=== PATIENT | male | born 1975 | race Caucasian/White ===

== ENCOUNTER 2024-08-03 14:21 | Outpatient (AMB) | payer OTHER, SELFPAY ==
--- NOTE | 2024-08-03 14:23 | MHC.OFFVIS ---
Vital Signs 08/03/24 14:25 Height 5 ft 10 in Weight 207 lb 2 oz BMI 29.7 Intake Visit Reasons: Colonoscopy screening Intake Note: This patient presents for colonoscopy screening. Pt c/o; no complaints. Tax Services Manager Required: No Accompanied by: Self / Same As Patient Allergies No Known Allergies Allergy (Verified 08/03/24 14:30) HPI HPI Colonoscopy screening: Details: 49-year-old male referred for screening colonoscopy. He denies GI complaints. His father of colon cancer at age of 71. He therefore had a colonoscopy at age of 43. He said he is supposed to have 1 every 5 years but he has been delayed from last year. He had his colonoscopy done in [place] 6 years ago. He says he was told he had some small polyps. [facility] Medical History (Updated 08/03/24 @ 14:28 by Francesco French MD) Colon cancer screening Surgical History (Updated 08/03/24 @ 14:32 by KRISTIN Connolly) History of colonoscopy History of lithotripsy Family History (Updated 08/03/24 @ 14:32 by KRISTIN Connolly) Father Colon cancer Social History Alcohol intake: current Alcohol intake frequency: holidays/special occasions only Patient Tobacco Use Status: Never used Tobacco Review of Systems Const Denies chills and Denies fever(s) Card Denies chest pain, Denies dyspnea and Denies dyspnea on exertion Resp Denies cough, Denies dyspnea and Denies dyspnea on exertion GI Denies hematochezia and Denies change in bowel habits Denies hematuria and Denies difficulty urinating Musc Denies back pain and Denies limited range of motion Neuro Denies focal weakness and Denies convulsions Psych Denies depression and Denies mood swings Physical Exam Const General: comfortable and no acute distress Orientation/consciousness: patient oriented x3 Neck Neck: Yes no lymphadenopathy Resp Auscultation: clear to auscultation bilaterally Cardio Rhythm: regular rhythm GI Palpation (GI): Soft to palpation, nontender and no guarding Neuro General: patient oriented x3 Assessment & Plan Assessment & Plan (1) Colon cancer screening: Code(s): Z12.11 - Encounter for screening for malignant neoplasm of colon Category: Medical Plan: I explained to him the technique of colonoscopy for screening. I reviewed the risks including but not limited to bleeding and perforation, as well as the benefits and alternatives. He understands and wants to proceed. Coding Level of Care Code New Pt Level 3 (66849) Diagnoses Colon cancer screening Z12.11
[2024-08-03 14:25] VITALS: BMI 29.7
--- OUTSIDE RECORDS SUMMARY | 2024-08-03 14:28 | XMS_ITS | Patient Health Record ---
Author Organization [facility] Address [address] [facility] [address] [place] [address] Care Team Providers Care Radiation Monitor Name Role Phone Jacqueline Yoo Primary Care Provider Unavailabl e Allergies No Known Allergies Reason For Referral No Information Medications Medication SIG (Take, Route, Fr equency, Duration) Notes Start Date End Date Status CeleBREX 200 MG 1 capsule with food Orally Once a day Active Plan Of Treatment Pending Test Test Name Order Date X ray : Foot, right 3v 12/12/2020 DRAIN/INJECT, SMALL JOINT/BURSA 12/13/19 21 Insurance Providers Payer Name Payer Address Payer Phone Subscriber Number Group Number Insured Name Patient Relationship to Insured Coverage Start Date Coverage End Date [facility] [address] [place] [phone] [id number] Demetri Naik Self - patient is the insured Medications Administered Medication Instructions Date of Administration Dosage Notes Dexamethasone 12/12/2020 2 mg Kenalog 12/12/2020 20 mg Medical (General) History Medical History History ICD Code Kidney stone Allergic Rhinitis Healthy Adult
--- OUTSIDE RECORDS SUMMARY | 2024-08-03 14:29 | XMS_ITS | Continuity of Care Document ---
Author Organization [facility] Address [address] [place] [address]- Support Name Relationship Address Phone MAURITIAN, KAVITHA Personal Relationship Unknown Unava ilable MAURITIAN, KAVITHA Personal Relationship Unknown Unava ilable MAURITIAN, KAVITHA Personal Relationship Unknown Unava ilable MAURITIAN, KAVITHA Personal Relationship Unknown Unava ilable MAURITIAN, KAVITHA Personal Relationship Unknown Unava ilable MAURITIAN, KAVITHA Personal Relationship Unknown Unava ilable MAURITIAN, KAVITHA Personal Relationship Unknown Unava ilable MAURITIAN, KAVITHA Personal Relationship Unknown Unava ilable MAURITIAN, KAVITHA Personal Relationship Unknown Unava ilable MAURITIAN, KAVITHA Personal Relationship Unknown Unava ilable MAURITIAN, KAVITHA Personal Relationship Unknown Unava ilable MAURITIAN, KAVITHA Personal Relationship Unknown Unava ilable MAURITIAN, HALEY mother Unknown Unavailable MAURITIAN, KAVITHA Personal Relationship Unknown Unava ilable MAURITIAN, KAVITHA Personal Relationship Unknown Unava ilable MAURITIAN, KAVITHA Personal Relationship Unknown Unava ilable MAURITIAN, HALEY mother Unknown Unavailable MAURITIAN, KAVITHA Personal Relationship Unknown Unava ilable MAURITIAN, KAVITHA Personal Relationship Unknown Unava ilable MAURITIAN, KAVITHA Personal Relationship Unknown Unava ilable MAURITIAN, KAVITHA Personal Relationship Unknown Unava ilable MAURITIAN, KAVITHA Personal Relationship Unknown Unava ilable MAURITIAN, KAVITHA Personal Relationship Unknown Unava ilable MAURITIAN, KAVITHA Personal Relationship Unknown Unava ilable MAURITIAN, KAVITHA Personal Relationship Unknown Unava ilable MAURITIAN, KAVITHA Personal Relationship Unknown Unava ilable MAURITIAN, KAVITHA Personal Relationship Unknown Unava ilable LORRIE, RADHA sibling Unknown Unavailable MAURITIAN, KAVITHA Personal Relationship Unknown Unava ilable MAURITIAN, KAVITHA Personal Relationship Unknown Unava ilable MAURITIAN, KAVITHA Personal Relationship Unknown Unava ilable MAURITIAN, KAVITHA Personal Relationship Unknown Unava ilable MAURITIAN, KAVITHA Personal Relationship Unknown Unava ilable MAURITIAN, KAVITHA Personal Relationship Unknown Unava ilable MAURITIAN, KAVITHA Personal Relationship Unknown Unava ilable MAURITIAN, KAVITHA Personal Relationship Unknown Unava ilable MAURITIAN, KAVITHA Personal Relationship Unknown Unava ilable MAURITIAN, KAVITHA Personal Relationship Unknown Unava ilable MAURITIAN, KAVITHA Personal Relationship Unknown Unava ilable MAURITIAN, KAVITHA Personal Relationship Unknown Unava ilable MAURITIAN, KAVITHA Personal Relationship Unknown Unava ilable MAURITIAN, KAVITHA Personal Relationship Unknown Unava ilable MAURITIAN, KAVITHA Personal Relationship Unknown Unava ilable MAURITIAN, KAVITHA Personal Relationship Unknown Unava ilable MAURITIAN, KAVITHA Personal Relationship Unknown Unava ilable MAURITIAN, KAVITHA Personal Relationship Unknown Unava ilable MAURITIAN, KAVITHA Personal Relationship Unknown Unava ilable MAURITIAN, KAVITHA Personal Relationship Unknown Unava ilable MAURITIAN, KAVITHA Personal Relationship Unknown Unava ilable MAURITIAN, KAVITHA spouse Unknown Unavailable MAURITIAN, KAVITHA Personal Relationship Unknown Unava ilable MAURITIAN, KAVITHA Personal Relationship Unknown Unava ilable MAURITIAN, KAVITHA Personal Relationship Unknown Unava ilable MAURITIAN, KAVITHA Personal Relationship Unknown Unava ilable MAURITIAN, KAVITHA Personal Relationship Unknown Unava ilable MAURITIAN, KAVITHA Personal Relationship Unknown Unava ilable MAURITIAN, KAVITHA Personal Relationship Unknown Unava ilable MAURITIAN, KAVITHA Personal Relationship Unknown Unava ilable Care Team Providers Care Manager Money Name Role Phone Jacqueline Yoo MD Primary Care Phys[id number] Date(s[facility] 07/12/[facility] - 07/19/24 [facility] [address] [place] [address] Encounter Diagnosis Acute sinus infection(Discharge Diagnosis) - 07/12/24 Attending Physician: Jacqueline Yoo MD Encounter Type: Office Visit Allergies, Adverse Reactions, Alerts No Known Allergies Immunizations Given and Recorded Vaccine Date Status Refusal Reason influenza virus vaccine, inactivated 03/09/24 John rded influenza virus vaccine, inactivated 04/24/23 John rded influenza virus vaccine, inactivated 04/18/22 John rded influenza virus vaccine, inactivated 04/03/21 John rded influenza virus vaccine, inactivated 03/16/20 John rded influenza virus vaccine, inactivated 02/02/18 John rded influenza virus vaccine, inactivated 1 04/07/17 Re corded influenza virus vaccine, inactivated 2 04/06/16 Re corded influenza virus vaccine, inactivated 3 02/21/13 Gi libertad influenza virus vaccine, inactivated 02/20/13 John rded influenza virus vaccine, inactivated 4 03/25/11 Gi libertad influenza virus vaccine, inactivated 5 03/07/10 Gi libertad influenza virus vaccine, inactivated 6 08/18/08 Gi libertad SARS-CoV-2(COVID-19)mRNA-LNP vac([id number]) 03/09/24 Recorded [id number] bivalent booster vax 06/01/22 Recorded SARS-CoV-2 (COVID-19) mRNA-1273 vaccine 05/06/21 R ecorded SARS-CoV-2 (COVID-19) mRNA-1273 vaccine 07/20/20 R ecorded SARS-CoV-2 (COVID-19) mRNA-1273 vaccine 06/20/20 R ecorded hepatitis B adult vaccine 7 05/07/18 Recorded hepatitis B adult vaccine 03/28/18 Recorded tetanus-diphtheria toxoids (Td) 03/05/18 Recorded tetanus-diphtheria toxoids (Td) 02/16/01 Given tetanus/diphtheria/pertussis, acel(Tdap) 8 06/10/13 Given FluLaval (oldterm) 9 02/26/09 Given Influenza Virus Vaccine (oldterm) 10 06/22/06 Give n 1Result Comment: [04/09/2017] done at [facility] form received 2Result Comment: [11/04/2016] PER PT 3Result Comment: [02/21/2013] [facility] 4Admin Note: done at [facility] form received 5Admin Note: DONE AT [facility] ALL INFO FROM FORM 6Admin Note: given elsewhere 7Location History: [facility] 8Result Comment: [06/10/2013] given w/o incidense..mh 9Admin Note: given w/o incident 10Admin Note: ALREADY RECEIVED - PER PT Medications fluticasone 50 mcg/inh nasal spray 2 sprays = 100 mcg, Nasal, Daily, # 16 Gm, 2 Refills, Maintenance, 08/05/23 8:11:00 AM Tiago CARBALLO 3, Partial fill upon patient request if the prescription is for a schedule II opioid drug., 2 sprays Nasal Daily,x30 days, 180, cm, 11/13/22 14:01:00 EDT, Height Start Date: 08/05/23 Stop Date: 11/03/23 Status: Ordered Quantity: 16.0 Unit: g Repeat number: 3 Melatonin Daily at bedtime, 0 Refills, Maintenance, 11/06/17 9:17:16 AM EDT Start Date: 11/06/17 Status: Ordered Repeat number: 1 Problem List Condition Confirmation Course Effective Dates Status Health St atus Informant Allergic rhinitis Confirmed Active Healthy adult Confirmed Active Kidney stone Confirmed Active Diagnosis Diagnosis Type Effective Dates Health Status Cl inical Service Informant Acute sinus infection Discharge Diagnosis 07/12/24 Vital Signs Most recent to oldest [Reference Range]: 1 Height 180 cm (07/12/24 10:39 AM) Weight 92.5 kg (07/12/24 10:39 AM) Oxygen Saturation [94-100 %] 95 % (07/12/24 10:39 AM) Pulse Rate [55-90 bpm] 86 bpm (07/12/24 10:39 AM) Body Mass Index [18.5-24.99 kg/m2] 28.55 kg/m2 *H* (07/12/24 10:39 AM) Blood Pressure [90-138/55-84 mm Hg] 124/ 84mm Hg (07/12/24 10:39 AM) Temperature [96.8-100.4 DegF] 98 DegF (07/12/24 10:39 AM) Mode of Delivery (Oxygen) Room air (07/12/24 10:39 AM) Blood pressure sites Arm, right (07/12/24 10:39 AM) Temperature Route Temporal (07/12/24 10:39 AM) Dry Weight 92.5 kg (07/12/24 10:39 AM) Weight Obtained Via Standing scale (07/12/24 10:39 AM) Dry Weight Obtained Via Standing scale (07/12/24 10:39 AM) Social History Social History Type Response Smoking Status Never smoker; Tobacc o user in household: No entered on: 06/10/13 Sex Sex Representation Male (finding) Note * Mariama Pineda: PERFORM Event Display: Patient Education/Instruction Authored Date: [id number] Ambulatory Adult Visit Summary [facility] [place] [address] Name: CHIKIS THEODORE : 1975?? Visit: 07/12/2024 10:35?? Ambulatory Visit Instructions ?? Your Care Team Primary Care Provider Jacqueline Yoo MD? This Visit Provider Jacqueline Yoo MD Your Diagnosis Acute sinus infection Vitals Signs Temperature: 98 DegF Height: 180 cm Pulse Rate: 86 bpm Weight: 92.5 kg Systolic Blood Pressure: 124 mm Hg Body Mass Index:??28.55 kg/m2??High Diastolic Blood Pressure: 84 mm Hg Body surface area: 2.15 Oxygen Saturation: 95 % ?? Medications The list below reflects the information in our records and provided by you today along with any changes made during this visit. Please continue your medications until treatment is completed or stopped by your provider. If this is different from the information you have or there are other questions,please contact the prescribing provider. What How Much When Instructions Unchanged Fluticasone Nasal (fluticasone 50 mcg/ inh nasal spray) 2 spray(s) Nasal Daily Duration: 30 Days Unchanged Melatonin Daily at Bedtime Medications and Immunizations Administered Medications Given During Visit No medications given during this visit.?? Allergies (NKA means No Known Allergies) NKA Common Emergency Awareness Tips IS IT A STROKE? Act FAST and Check for these signs: FACE Does the face look uneven? ARM Does one arm drift down? SPEECH Does their speech sound strange? TIME Call at any sign of stroke ?? Heart Attack Signs Chest discomfort: Most heart attacks involve discomfort in the center of the chest and lasts more than a few minutes, or goes away and comes back. It can feel like uncomfortable pressure, squeezing, fullness or pain. Discomfort in upper body: Symptoms can include pain or discomfort in one or both arms, back, neck, jaw or stomach. Shortness of breath: With or without discomfort. Other signs: Breaking out in a cold sweat, nausea, or lightheaded. Remember, MINUTES DO MATTER. If you experience any of these heart attack warning signs, call to get immediate medical attention! ?? Smoking can increase your chances of developing chronic health problems and can cause harmful effects to other family members in your house. If you smoke, you are strongly encouraged to quit. Please call [employer] at [phone] or [phone] Game ([phone]) or log in to [email or web address] for referrals to smoking cessation programs. ?? The National Suicide Prevention Hotline is available 05/01 if you or someone you know needs to find a reason to keep living. By calling 6-043-520-aodh (2550) you'll be connected to a skilled, trained counselor at a crisis center in your area. [facility] Health Portal You can view and manage your care through the patient portal or by using a health care minerva of your choosing. [employer] is a website that allows you to securely view your medical information including your hospital discharge summary, office visit summaries, medications and follow-up visits. You can also request appointments, renew medications, and request access to your medical information using a health care minerva of your choosing, or just ask a question. You can enroll at [email or web address] or register during your next office visit. [facility], in keeping with [facility] guidance, no longer requires face masks for staff, patientsor visitors in most situations. Similiar to time spent indoors at other locations, there is the chance that you were exposed to repiratory viruses during your time with us (such as flu or COVID-19). If you develop symptoms concerning for a viral respiratory infection, please seek testing (and treatment if indicated) from your medical provider or home test kit. ?? Disclaimer: The information provided is of a general nature and is intended to be used in conjunction with the recommendations and advice of your health care practitioner. Every effort has been made to ensure that the information provided is accurate and complete at the time it is provided to you however, as your needs change, or, as new information becomes available, different or additional instructions may be required. ?? If you have questions, please consult with your primary care provider or pharmacist, as appropriate. This information is not intended to serve as substitution for assessment and evaluation by a qualified health care provider. If you do not have a primary care provider, you may find a [facility] provider by calling [employer] at [phone]. Patient Care team information Care Team Personnel Name: Jacqueline Yoo MD Position: DENISA Physician - Primary Care Member Role: PCP Address: [address] [place] [address] Adult and [place], [place] [address] Telecom: Care Team Related Persons Name: RADHA ANDREW Name: ARBEN KAVITHA Name: HALEY THEODORE Name: HALEY THEODORE Insurance Providers Guarantor name: CHIKIS THEODORE Health Plan Information #: 1 Payer: [facility] Member Number: [id number] Policy Number: NA Group Number: [id number] Health Plan Information #: 2 Payer: [facility] PPO Member Number: [id number] Policy Number: NA Group Number: [id number]
== END 2024-08-03 14:48 | disposition home or self-care (01) ==
PROVIDERS: PCP Internal Medicine; Visit Provider Surgery
DX: Z12.11 Encounter for screening for malignant neoplasm of colon (principal)
CPT/HCPCS: 99203

== ENCOUNTER 2024-10-04 07:26 | Day surgery (SDC) | payer OTHER, SELFPAY ==
--- OUTSIDE RECORDS SUMMARY | 2024-09-13 10:31 | XMS_ITS | Patient Health Record ---
Author Organization [facility] Address [address] [facility] [address] [place] [address] Care Team Providers Care Intel Analyst Name Role Phone Jacqueline Yoo Primary Care [...] Insured Coverage Start Date Coverage End Date [facility] [address] [facility] [address] [place] [address] [phone] [id number] Demetri Naik Self - patient is the insured Medications Administered Medication Instructions Date of Administration Dosage Notes Dexamethasone 12/12/2020 2 mg Kenalog 12/12/2020 20 mg Medical (General) History Medical History History ICD Code Kidney stone Allergic Rhinitis Healthy Adult
[2024-09-28 15:47] VITALS: BMI 29.7
--- NOTE | 2024-09-29 15:27 | P.CONAN_ITS ---
Documented by User: Michelle Pennington NP 09/29/24 15:27 HPI - Anesthesia Eval Consult details Narrative: 49yo M for Colonoscopy with possible Polypectomy PMFSH Active Problems Active Problems: All Active Problems Colon cancer screening (Acute) Past Medical History Medical History Colon cancer screening Family History Family History (Updated 08/03/24 @ 14:32 by KRISTIN Connolly) Father Colon cancer Surgical History Surgical History (Updated 08/03/24 @ 14:32 by KRISTIN Connolly) History of colonoscopy History of lithotripsy Social History Social History (Updated 08/03/24 @ 14:32 by KRISTIN Connolly) Are you a primary palliative care coordinator to a significant other at home: No Do you presently have visiting nurse or other home services: No Alcohol intake: current Alcohol intake frequency: holidays/special occasions only Patient Tobacco Use Status: Never used Tobacco Use of substances other than those prescribed or required for medical reasons: No Have you been hit, kicked, punched, or otherwise hurt by someone within the past year? If so, by whom?: No Are you DNR?: No Advance Directives: No Advance Directives Information Provided: Yes Poor oral hygiene: No Meds Allergies Allergy/AdvReac Type Severity Reaction Status Date / Time No Known Allergies Allergy Verified 10/04/24 07:48 Exam Height,Weight and Vital Signs: Height 5 ft 10 in Weight 93.95 kg Assessment and Plan Assessment Anesthesia Assessment: Chart Reviewed Documented by User: Aneesh Monroy MD 10/04/24 08:22 [facility] Past Medical History Medical History Colon cancer screening Family History Family History (Updated 08/03/24 @ 14:32 by KRISTIN Connolly) Father Colon cancer Family history of problems with anesthesia: No Surgical History Surgical History (Updated 08/03/24 @ 14:32 by KRISTIN Connolly) History of colonoscopy History of lithotripsy History of Problems with Anesthesia: No Social History Social History (Updated 08/03/24 @ 14:32 by KRISTIN Connolly) Are you a primary palliative care coordinator to a significant other at home: No Do you presently have visiting nurse or other home services: No Alcohol intake: current Alcohol intake frequency: holidays/special occasions only Patient Tobacco Use Status: Never used Tobacco Use of substances other than those prescribed or required for medical reasons: No Have you been hit, kicked, punched, or otherwise hurt by someone within the past year? If so, by whom?: No Are you DNR?: No Advance Directives: No Advance Directives Information Provided: Yes Poor oral hygiene: No Meds Allergies Allergy/AdvReac Type Severity Reaction Status Date / Time No Known Allergies Allergy Verified 10/04/24 07:48 Exam Airway Mallampati Class: I TM Dist: <=3cm Neck ROM: Full Loose/Missing/Broken Teeth: No Heart: ok Lungs: ok Assessment and Plan Assessment Anesthesia Assessment: Anesthesia Plan Discussed Final Anesthetic Review Family History of Problems with Anesthesia: No History of Problems with Anesthesia: No NPO: Yes ASA Class: I Final Preanesthetic Review: No Changes in Pt Med Stat, Meds/Allgs Chart Reviewed, Consent Obtained/Reviewed and Anes Risks/Benef Reviewed Patient Risk: Low Procedure Risk: Low Anesthetic Plan Anesthetic Plan: MAC: and Agree w/ Assess. and Plan Disposition: Standard PACU
[2024-10-04 07:54] VITALS: BP 125/90; PULSE 83; RESP 14; TEMP 36.6; O2SAT 95; BMI 28.2
[2024-10-04] MEDS: Lactated Ringers 1,000 ML 100 ML IVCONT (08:06)
--- NOTE | 2024-10-04 08:06 | MHC.SHP ---
Pre-Procedural Eval Section A - 24 Hr Update-Section A only Date of Service: 10/04/24 Section B - Complete if H&P > 30 days Chief Complaint: screening Details of Present Illness: Has a family history of colon cancer Relevant Social History: None Present Medications: see Short Stay Collaborative assessment Medical History: No relevant PMH Allergies: Allergies Allergy/AdvReac Type Severity Reaction Status Date / Time No Known Allergies Allergy Verified 10/04/24 07:48 Review of Systems Sugical H&P ROS: Negative: Constitution, Cardiovascular, Respiratory and Gastrointestinal Exam Surgical H&P Exam: Normal: Heart, Normal: Lungs and Normal: Abdomen Plan Diagnosis/Plan: Unchanged I have reviewed the history and physical and performed a pertinent physical examination on my patient. No changes have occurred unless specified. Time Spent With Patient Time: Total time managing care of this patient today ____ minutes.
--- NOTE | 2024-10-04 09:15 | HO.OPN-COLON ---
Colonoscopy Operative Note Operative Note Date of Service: 10/04/24 Narrative: Preop diagnosis: Family history of colon cancer Postop diagnosis: Suboptimal bowel prep Procedure: Colonoscopy Surgeon: Francesco French MD The patient is a 49-year-old male who is here for a family history of colon cancer in undergoes a colonoscopy every 5 years. He understands the technique of the procedure as well as the risks, benefits, and alternatives The patient was brought to the operating room and placed in left lateral decubitus position under monitored anesthesia care. A surgical time-out was done. A full digital rectal exam was done and this did not reveal any significant anal lesions. The tip of the Olympus colonoscope was gently introduced through the anal orifice advanced with insufflation all the way to the cecum. We had difficulty advancing the scope all the way to the cecum because of severe looping and redundancy. We had to apply pressure on the abdomen on various areas before we could advance the scope into the cecum. The cecum was identified by visualization of the ileocecal valve as well as the appendiceal orifice. The cecal mucosa was unremarkable. The scope was gradually withdrawn with careful examination of the entire colonic mucosa being done with scope withdrawal. The patient had a lot of segments of the colon with pools of watery stools. There were no large lesions seen. However, I felt that preop was suboptimal because of this pulls of watery stools. The rectum was reached and there were no lesions seen. The anal canal was unremarkable. The scope was then withdrawn completely with desufflation The patient tolerated the procedure well. There were no immediate complications. In view of his suboptimal bowel prep, I would recommend repeating the colonoscopy in the next 2-3 years.
[2024-10-04 09:20] VITALS: BP 102/66; PULSE 67; RESP 18; TEMP 36.2; O2SAT 97
[2024-10-04 09:35] VITALS: BP 120/82; PULSE 68; RESP 20; TEMP 36.3; O2SAT 97
== END 2024-10-04 10:08 | disposition home or self-care (01) ==
PROVIDERS: PCP Internal Medicine; Visit Provider Surgery
PROC: 0DBE8ZZ Excision of Large Intestine, Via Natural or Artificial Opening Endoscopic (ICD-10-PCS; CPT 45378; principal; 2024-10-04 08:40)
DX: Z12.11 Encounter for screening for malignant neoplasm of colon (principal); Z80.0 Family history of malignant neoplasm of digestive organs; Z87.442 Personal history of urinary calculi
CPT/HCPCS: 45378; J2003; J2704; J3010

== ENCOUNTER → 2024-10-04 07:26 | Outpatient (BNV) | payer OTHER, SELFPAY | PROVIDERS: PCP Internal Medicine; Visit Provider Surgery | DX: Z12.11 Encounter for screening for malignant neoplasm of colon (principal); Z80.0 Family history of malignant neoplasm of digestive organs | CPT/HCPCS: 45378 ==

== ENCOUNTER 2024-10-17 13:51 | Outpatient (AMB) | payer OTHER, SELFPAY ==
[2024-10-17 13:53] VITALS: BP 115/72; PULSE 100; O2SAT 95; BMI 29.3
--- NOTE | 2024-10-17 13:53 | MHC.OFFVIS ---
Vital Signs 10/17/24 13:53 Height 5 ft 10 in Weight 204 lb 2.369 oz BMI 29.3 BP 115/72 Blood Pressure Location Rt brachial Position Sitting Pulse 100 Pulse Source Pulse Oximeter Pulse Oximetry (%) 95 Oxygen Delivery Method Room Air Intake Visit Reasons: S/P colonoscopy Intake Note: Patient here s/p colonoscopy. Patient c/o: None Allergies No Known Allergies Allergy (Verified 10/17/24 13:56) Medication List - Last Reconciled 10/17/24 by Francesco French MD No Known Home Meds HPI HPI S/P colonoscopy: Details: He underwent colonoscopy last 10/04/2024 for screening. He tolerated procedure well and currently denies significant complaints. [facility] Medical History Colon cancer screening Surgical History History of colonoscopy History of lithotripsy Family History Father Colon cancer Social History Are you a primary health care marketing manager to a significant other at home: No Do you presently have visiting nurse or other home services: No Alcohol intake: current Alcohol intake frequency: holidays/special occasions only Patient Tobacco Use Status: Never used Tobacco Review of Systems Const Denies chills and Denies fever(s) Card Denies chest pain GI Denies abdominal pain and Denies hematochezia Physical Exam Vital Signs: Last Vital Signs Pulse 100 10/17/24 13:53 BP 115/72 10/17/24 13:53 Pulse Ox 95 10/17/24 13:53 Oxygen Delivery Method Room Air 10/17/24 13:53 BMI result Body Mass Index 29.3 Const General: comfortable and no acute distress Resp Effort & Inspection: normal respiratory effort GI Palpation (GI): Soft to palpation, not firm and nontender Assessment & Plan Assessment & Plan (1) Colon cancer screening: Code(s): Z12.11 - Encounter for screening for malignant neoplasm of colon Category: Medical Plan: Status post colonoscopy for screening. I did not see any polyps or any significant sized lesions. However, his bowel prep was suboptimal so I am going to recommend repeating the colonoscopy within the next 2-3 years. I will probably use a full gal GoLYTELY that time as well as bowel prep. I explained this to him and he says he understands. Coding Level of Care Code Est Pt Level 2 (75950) Diagnoses Colon cancer screening Z12.11
--- OUTSIDE RECORDS SUMMARY | 2024-10-17 15:24 | XMS_ITS | Patient Health Record ---
Author Organization [facility] Address [address] [facility] [address] [place] [address] Care Team Providers Care Cloud Engineer Name Role Phone Jacquelien Yoo Primary Care Provider Unavailabl e Allergies [...] Coverage Start Date Coverage End Date [facility] [address] [facility] [address] [place] [address] [id number] Demetri Naik Self - patient is the insured Medications Administered Medication Instructions Date of Administration Dosage Notes Dexamethasone 12/12/2020 2 mg Kenalog 12/12/2020 20 mg Medical (General) History Medical History History ICD Code Kidney stone Allergic Rhinitis Healthy Adult
--- OUTSIDE RECORDS SUMMARY | 2024-10-17 15:24 | XMS_ITS | Data Portability ---
Author Organization [place] [facility] Address [address] [place] [address] Assessment Encounter Date Assessment Date Assessment LastModified by Organization Details LastModified Time 07/22/2018 07/22/2018 43 year-old male with no history who calls [facility] evaluation of rash to both knees. This began a few days ago. He has been noticing some blisters to the left knee and right knee. 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 He became concerned when he noticed this same kind of rash to his right forearm and to his back. No history of infections. Has been wearing turnout gear rented from store. . PE: no fevers, Skin noted as in PE. DDX: cellulitis, folliculitis, rash. septic joint No red flags to suggest joint involvement. Rash typical for folliculitis but some erythema and systemic rash to suggest MRSA appearing infection. WIll prescribe doxycycline and topical ointment - this was called into pharmacy for patient. Time On Scene with Patient: 00:37:49 [email or web address] Not available 07/22/2018 18:22:30 Plan of Treatment Reminders Order Date Submit Date Provider Last Modified By Organization Details Last Modified Time Details Appointments None recorded. Lab None recorded. Referral None recorded. Procedures None recorded. Surgeries None recorded. Imaging None recorded. Medication Orders mupirocin 2 % topical ointment 2018 019 [email or web address] Not available 9 12:15:14 doxycycline hyclate 100 mg capsule 2018 019 [email or web address] Not available 9 12:15:14 Patient TargetsNo targets recorded. Patient Instructions Encounter Date Encounter Id Patient Instructions Last Modified By Organization Details Last Modified Time 07/22/2018 [id number] We were called t o your home for evaluation of left knee pain and rash to left knee and spreading to your right knee. It is concerning for MRSA infection secondary to folliculitis. You are sweating a lot in the [employer] which makes this worse. We prescribed you doxycycline and topical ointment for both of your knees. Please follow up with yoru PCP as needed. If you have any worsening swelling, pain ,redness or feel this worsening, you will have to go to the ED. [email or web address] Not available 07/22/2018 18:03:14 Reason for Referral None Reported. Medical Equipment None Reported. Allergies No known drug allergies Medications Name Sig Start Date Stop Date Status Note LastModified by Organization Details LastModified Time doxycycline hyclate 100 mg capsule Take 1 capsule twice a day by oral route for 7 days. 2018 active Not Available Not Available Not Avai lable peg-electrolyt e solution 420 gram oral solution active Not Available Not Available Not Available mupirocin 2 % topical ointment APPLY A SMALL AMOUNT TO THE AFFECTED AREA BY TOPICAL ROUTE 3 TIMES PER DAY 2018 active Not Available Not Available Not Avai lable Engerix-B (PF) 20 mcg/mL intramuscular suspension active Not Available Not Available N ot Available Vitals Date Recorded Oxygen saturation Oxygen saturation in Arterial blood by Pulse oximetry Heart rate Body temperature Respiratory rate Systolic blood pressure Diastolic blood pressure Provider Name and Address Organization Details Last Updated DateTime 9 96 % 96 % 84 /min 98.6 [degF] 20 /min 112 mm[Hg] 70 mm[Hg] Not Available [facility] 9 17:52:31 Social History None recorded. Functional Status None recorded. Mental Status None recorded. Family History Nothing Reported. Medical History No medical history recorded. Past Encounters Encounter ID Performer Location Encounter Start Date Encounter Closed Date Diagnosis/Indication Diagnosis SNOMED-CT Code Diagnosis ICD10 Code Diagnosis Note [id number] MARSHALL PLATA NP [facility] [address] [facility] [place] [address] 07/22/2018 17:44:53 07/22/2018 18:17:25 Folliculitis [id number] L73.9 Health Concerns Section Related Observation LastModified by Organization Detai ls LastModified Time None Recorded Concern Status LastModified by Organization Details LastModified Time None Recorded Advance Directives Directive None Recorded Payers Encounter Date Sequence Insurance Name Policy Number Policy [employer] Covered Member ID [employer] Member ID Guarantor Name 07/22/[address] [place] [id number] Demetri Naik [id number] Dougkody Naik Notes Date Note Type Note Provider Name and Address Organization Details Recorded Time 07/22/2018 text/html 43 year-old male with no history who calls [facility] evaluation of rash to both knees. This began a few days ago. He has been noticing some blisters to the left knee and right knee. 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 He became concerned when he noticed this same kind of rash to his right forearm and to his back. No history of infections. Has been wearing turnout gear rented from store. . MARSHALL PLATA NP [address] [place] [address], [id number], [place] [facility] 07/22/2018 19:25:51
== END 2024-10-17 14:00 | disposition home or self-care (01) ==
LOC: HO.HGS 13:51
PROVIDERS: PCP Internal Medicine; Visit Provider Surgery
DX: Z12.11 Encounter for screening for malignant neoplasm of colon (principal)
CPT/HCPCS: 99212

== ENCOUNTER → 2024-10-17 13:51 | Outpatient (BNVA) | payer OTHER, SELFPAY | PROVIDERS: PCP Internal Medicine; Visit Provider Surgery ==